=== PATIENT | female | born 1970 | race Caucasian/White ===

== ENCOUNTER 2016-05-19 06:56 | Inpatient (IN) | payer MEDICARE, MEDICAID ==
[~2016-05-19] VITALS: Ht 167.6 cm; Wt 66.0 kg
[~2016-05-19 06:56] MED LIST: CA C1TAB83 PO; CHOL100043 PO; CRAN400T4 PO; CYAN100017 SL; ESOM40CA41 PO; ESTR0.5T PO; OXYB5TAB10 PO; PERP4TAB11 PO; SPIR1TAB2 PO
[2016-05-19] MEDS ORDERED: Magnesium Hydroxide 10 mL Oral Concentration PO PRN (09:30)
[2016-05-19] MEDS ORDERED: Benzocaine-Menthol Lozenge 2/Pkg PO PRN (09:30)
[2016-05-19] MEDS ORDERED: LORazepam 1 mg Tablet PO PRN (09:30)
[2016-05-19] MEDS ORDERED: Alum-Mag Hydrox-Simeth 30 mL Suspension PO PRN (09:30)
[2016-05-19] MEDS ORDERED: VENL75CA95 PO (11:58)
[2016-05-19] MEDS ORDERED: PERP4TAB11 PO (12:07)
--- NOTE | 2016-05-19 12:50 | NUR ---
Nursing Admission Note: Patient arrived on the unit at 0915 on a gurney escorted by EMS and security. Has been increasingly more depressed and hearing command hallucinations to kill herself using a knife to cut herself. States she feels safe here but not if she were at home. Willingly signed no harm contract. States she feels alone at home and needs a medication change so she will not be having these thoughts. Tearfully acknowledged Cerebral Palsy having a lot to do with her depression and SI. Brought patient a FWW to assist her in ambulation on the unit secondary to abnormal gait from Cerebral Palsy. Med rec completed. Ate well at breakfast and lunch. Will monitor mood and behavior. Addendum: 05/19/16 at 1736 by DENNY RIDER RN Patient has rested in her room this AM. Has been out of her room this afternoon watching football games with peers. Some interaction noted. Eating well at meals.
[2016-05-19] MEDS ORDERED: HCTZ PO SCH (13:40)
[2016-05-19] MEDS ORDERED: SPIRONOLACTONE PO SCH (13:40)
[2016-05-19] MEDS: Venlafaxine XR 75 mg ER24 Capsule PO SCH (14:16)
[2016-05-19] MEDS: Pantoprazole 40 mg ER24 Tablet PO SCH (14:16)
--- NOTE | 2016-05-19 16:18 | NUR ---
Bad Credit Collector./ c.m. S.:"I'm somewhere safe..." O.: met with pt. to complete Psychosocial and Treatment plan and goals. Pt. is vol. She had multiple hospitalizations in the past. Her last hospitalization was in 2013. She is connected with [employer] and she also has caregivers from [facility]. She lives alone with a cat. She has supportive mother who is taking care of her cat right now. She started having AH about a year ago. She also started having VH recently that she was afraid of. "They (VH) scared me." Her depression also became worse over the last year. She denied SI today, denied HI. She denied AH/VH today, denied paranoid/delusional thoughts. She rated depression at 8/10 and anxiety at 8/10. She spent most of the time in the Dining room watching TV or watching peers. A.: pt. is cooperative, pleasant, anxious at times. P.: monitor behavior, engage pt. in the unit activities, provide safety; follow care plan.
[2016-05-19 16:21] VITALS: BP 112/71; PULSE 98; RESP 20
--- NOTE | 2016-05-19 19:19 | NUR ---
Observations 0900 to 2130 Pt was polite, pleasant and cooperative. Pt affect was mostly flat. Pt speech and eye contact was ok. Pt was social with staff and peers when approached. Pt watched TV with peers. Pt attended group and unit activities. Pt appears to be internally preoccupied. Pt maintained behavior throughout the shift. Pt attended meals in the D.R. and ate 75% of breakfast, 100% of lunch and 100% of dinner. Pt ate snack. Pt was observed every 15 minutes throughout the shift as ordered.
--- NOTE | 2016-05-19 20:50 | NUR ---
Nurses PRN Patient requested and received Ativan 1mg for anxiety and sleep. She requested Trilafon to be given at HS.
--- NOTE | 2016-05-20 05:36 | NUR ---
nursing, nights, 11-7 s/o- has appeared to sleep after 2200 during q 15 minute assessments. a- no apparent distress. p- monitor behavior/emotional state, quality, times and amount of sleep, use and effect of medication. charles
--- NOTE | 2016-05-20 06:13 | NUR ---
Pt out on unit much of evening. Watched TV and interacted with peers. Asleep at 2200. Pt observed every 15 minutes as ordered.
[2016-05-20] MEDS: Pantoprazole 40 mg ER24 Tablet PO SCH (09:44)
[2016-05-20] MEDS: Venlafaxine XR 75 mg ER24 Capsule PO SCH (09:44)
[2016-05-20 10:10] VITALS: BP 120/82; PULSE 115; RESP 16
[2016-05-20] MEDS ORDERED: Magnesium Hydroxide 10 mL Oral Concentration PO PRN (11:05)
[2016-05-20] MEDS ORDERED: Benzocaine-Menthol Lozenge 2/Pkg PO PRN (11:05)
[2016-05-20] MEDS ORDERED: Alum-Mag Hydrox-Simeth 30 mL Suspension PO PRN (11:05)
--- NOTE | 2016-05-20 14:15 | NUR ---
Golf Course Designer./ c.mNubia S.:"I'm not doing well... Voices came back." O.: met with pt. near TV area. She took a nap after lunch. She slept "good" last night. She denied SI/HI. She denied VH but she was disappointed that AH "came back" today. She was in and out of her room with multiple naps between. She said that usually she would sleep a lot. She described her mood as "so-so". She couldn't rate depression or anxiety at this time because she "just woke up after the nap." A.: pt. is cooperative, quiet, social with peers. P.: monitor behavior, follow care plan.
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
--- NOTE | 2016-05-20 18:09 | NUR ---
Nursing Dayshift: S: "I cried myself to sleep last night." O: Patient has been out of her room much of the shift. Has eaten well at meals. Mother stopped by at 1440 to get keys to patients apartment and stated she would be back with some of patient's belongings. Mother called recently and is still on the phone with patient. Noted to be interacting with staff and peers. Ambulating with a FWW without assistance without problems. C/O auditory hallucinations today and denies visual, and harmful thoughts. A: Pleasant on approach. Calm. P: CPOC. Monitor mood and behavior. Addendum: 05/20/16 at 1820 by DENNY RIDER RN Amended: Links added.
--- NOTE | 2016-05-20 18:33 | NUR ---
Observations 0700 to 1900 Pt was polite, pleasant and cooperative. Pt affect was mostly flat. Pt speech and eye contact was ok. Pt was social with staff and peers when approached. Pt watched TV with peers. Pt attended group and unit activities. Pt appears to be internally preoccupied. Pt maintained behavior throughout the shift. Pt attended meals in the D.R. and ate 50% of breakfast, 75% of lunch and 100% of dinner. Pt ate snack. Pt requires some assistance with ADL's. Pt was observed every 15 minutes throughout the shift as ordered.
--- NOTE | 2016-05-21 00:29 | NUR ---
OBSERVATIONS 1900 TO 0700 Pt was social with peers and cooperative with staff. Pt affect was somewhat bright, joking with staff and peers. Pt attended wrap-up group, stated that she did not have any goals but that she had a good day. Maintained Q15 safety checks as directed. Addendum: 05/21/16 at 0429 by RASHI DUVALL RUST Pt was asleep at 2145 and slept through the night.
--- NOTE | 2016-05-21 00:41 | NUR ---
NURSING NOTE [id number] Orientation= x3 Mood= "ok" *smiles* Affect= calm, pleasant Behavior= sitting out in common area watching TV w/peers, visible, presented independently for HS meds Thought processes= linear, denies SI/HI, endorses "some" AH, denies VH PRNs: Vistaril 50 mg @ HS 21:05 Addendum: 05/21/16 at 0614 by BELINDA SANDHU RN As of 599, pt. appears to have slept 7.5 hrs and is still resting in bed w/eyes closed.
[2016-05-21] MEDS: Venlafaxine XR 75 mg ER24 Capsule PO SCH (09:04)
[2016-05-21] MEDS: Pantoprazole 40 mg ER24 Tablet PO SCH (09:04)
--- NOTE | 2016-05-21 17:10 | NUR ---
Observations [id number] Pt was asleep upon start of shift. Her mood appeared flat and isolative. Pt did attend meals, eating an average of 75%. She also took a shower with the help of a nurse. Pt is friendly with peers upon interaction, but tends to isolate at times instead of getting involved in group activities. Pt stated that she is lonely at home, and that she does have a cat to keep her company but doesn't like living her her place as she feels isolated. Pt did attend groups and worked on art. She was cooperative with staff. Pt was observed every 15 minutes of shift as directed.
--- NOTE | 2016-05-21 17:22 | NUR ---
Syrup Shed Supervisor./ c.m. S.:"I'm tired... feel same as before - didn't notice any change." O.: met with pt. and MD together in pt.'s room. She was in bed sleeping/resting in the middle of the morning. She said that she "slept off and on" last night. She described her mood as "sad and depressed". She asked MD "Can I tried a booster?" They discussed different medication options that she could try to improve her mood. She denied SI/HI, denied AH/VH today. She rated depression at 8/10 and anxiety at 7/10. She was in and out of her room during the day. A.: pt. is cooperative, isolative, quiet, has a flat affect. P.: monitor behavior, encourage pt. to spend more time outside her room; follow care plan.
--- NOTE | 2016-05-21 17:44 | NUR ---
Nursing: Day shift: S: I still feel depressed. It's hard to have family members taking care of family. O: Flower has been lying in bed much of the day. She requested and took a shower with one person assist about 0900. Is able to communicate easily with staff. Is able to ambulate using walker. Has unsteady gait. Pt rated anxiety at 7/10, depression and suicidal thinking at 8/10, PRN meds: Pt received Tylenol 1420. Assessment: After one hour pt is sleeping. Assessment; Effective. A: Pt remains somnolent. Pleasant. No psychotic behaviour noted. Addendum: 05/21/16 at 1808 by LOY BARILLAS RN Amended: Links added.
--- NOTE | 2016-05-21 18:04 | NUR ---
spiritual care: pt request conversational visit in piano room. pt reported on overwhelm from medical/mental health conditions and said loneliness is her biggest concern. She described her living situation including commenting that "it's not healthy that my mother is also my caregiver" Pt reflected on her coping through smiling/laughing and protecting others against the pain and hopelessness she often feels. Pt expressed interest in connecting with a karen community near her home in [place]. She asked for devotional material and was agreeable for me to explore possible connections and follow up. Prayer. Addendum: 05/21/16 at 1810 by BREANNA SAMUELS CM pt insight: she repeated several times: "I like being her better than being "on the outside""--probing this, she offered that it feels more safe, that people care about her and that there are things/process/people that make her feel better.
--- NOTE | 2016-05-21 18:26 | PCM.PNPSY ---
Subjective Date of Service May 21, 2016 Subjective The patient reports that her mood is still low and that she is sad and depressed. She feels that her symptoms have not changed. She requests having a medication which might improve her mood somewhat and reports having responded positively to aripiprazole in the past. We discussed the need for a cross taper from her current medication and the patient was agreeable. She was a aware of the risks and benefits including metabolic syndrome and tardive dyskinesia. On physical examination, the patient had dystonia worse on the left than the right consistent with cerebral palsy with no cogwheeling present. She denied other side effects. She reports having previously received her medications at the [facility] in [place] but they appear to be closed today. Sleep: "Off and on" 7.5 hours Appetite: "Okay" Suicidal and homicidal ideation: None 2 days Auditory hallucinations/Visual hallucinations: None 2 days due to "lower stress " Other Psychotic Symptoms: Denies Anxiety: 7 Depression: 10 Current Medications Current Medications Acetaminophen 650 mg Q4H PRN PO Last administered on 05/21/16at 14:00; Admin Dose 650 MG; Start 05/20/16 at 11:05 Aripiprazole 5 mg DAILY PO Last administered on 05/21/16at 14:33; Admin Dose 5 MG; Start 05/21/16 at 14:05 Perphenazine 8 mg DAILYWM PO Last administered on 05/21/16at 09:05; Admin Dose 8 MG; Start 05/20/16 at 08:00 Prazosin HCl 1 mg HS PO Last administered on 05/20/16at 21:03; Admin Dose 1 MG; Start 05/20/16 at 21:00 Mental Status Exam Appearance: Unkept Attitude: Pleasant, Cooperative Behavior: Stereotypic movements (consistent with cerebral palsy, dystonia, nystagmus) Affect: Restricted Mood: Depressed Thought Process/Associations: Logical/Sequential Speech Production: Paucity Speech Rate: Lags/Latency Speech Articulation: Other (dysarthric) Thought Content: Appropriate Danger to Self/Suicidal Ideati: None Danger to Others: None Hallucinations: Auditory (Denies), Visual (Denies) Consciousness: Alert Orientation: Person, Place, Date, Situation Memory: Grossly Intact Estimate Intellectual Function: Average Attention/Concentration & Cogn: Grossly Intact Insight: Good Judgement: Good Mental Health Plan The patient is a 46-year-old female with cerebral palsy worsening over the past year. She is having difficulty with ambulation and requiring assistance. Her loss of independence is causing an increase in her stress and she is feeling increasingly lonely and isolated. The patient meets criteria for major depression, PTSD, and is having breakthrough pain from cerebral palsy. The patient recently had command auditory hallucinations to harm herself as well as visual hallucinations but these appeared to resolve with decreased stress. The patient had previously been tried on higher doses of Trilafon at this peer to worsened her symptoms. She reports a better response to aripiprazole and although the pharmacy is closed today appears to be a reasonable approach at this time for antidepressant augmentation. She is experiencing no particular acute signs of dystonia or other side effects from neuroleptics. Maria Stein Maria Stein I: 1. Major depressive disorder with psychotic features. 2. Post-traumatic stress disorder. [place] II: Deferred. Maria Stein III: 1. Cerebral palsy. 2. Back pain. Maria Stein IV: Moderate. Maria Stein V: Current Global Assessment of Functioning = 35. Medications Venlafaxine 225 mg daily Perphenazine 8 mg daily Prazosin 1 mg by mouth nightly Hydroxyzine 50 mg every 4 hours when necessary anxiety or agitation Zolpidem 5 mg 2 nightly when necessary insomnia Vitamin D3 1000 units daily Spironolactone 25 mg daily Oxybutynin 5 mg daily Hydrochlorothiazide 25 mg daily Pantoprazole 40 mg daily Estradiol 0.5 mg daily Treatments 1. The patient is provided with a safe environment with no additional precautions necessary at this time as the patient is denying active suicidality and agrees to notify staff this return. 2. The patient is encouraged to participate in group and milieu therapy. 3. The patient will meet with the treatment team on a daily basis. 4. The patient will be continued on the above medications. 5. The patient has requested to cross taper from perphenazine to aripiprazole. 6. Aripiprazole 5 mg by mouth daily will be started today. 7. Anticipated length of stay 3-5 days. Abdi Guillen MD May 21, 2016 18:26
--- NOTE | 2016-05-22 02:30 | NUR ---
Observations 1900 to 0700 Pt was in her room for most of the night. Pt spent most of it in her room besides having a snack. Pt first appeared asleep at 21:30 and was observed every 15 minutes through the night as directed.
--- NOTE | 2016-05-22 05:07 | NUR ---
noc shift Pt appeared to be asleep throughout the night with no distress and q15min checks. Pt was up once requesting juice and went back to sleep shortly after.
[2016-05-22] MEDS: Pantoprazole 40 mg ER24 Tablet PO SCH (09:25)
[2016-05-22] MEDS: Venlafaxine XR 75 mg ER24 Capsule PO SCH (09:26)
[2016-05-22 10:37] VITALS: BP 122/82; PULSE 90; RESP 15
--- NOTE | 2016-05-22 16:29 | PCM.PNPSY ---
Subjective Date of Service May 22, 2016 Subjective The patient reports that she still has a mood of 4/10 and is unchanged from yesterday. She reports no restlessness from the aripiprazole. She denies acute psychotic symptoms. She is getting up for meals and is spending some time in the day area but also is spending much of her time in bed. She denies side effects. She is oriented to 05/22/2016 Sleep: 8 hours, "not good." Appetite: "Okay" Suicidal and homicidal ideation: Denies Auditory hallucinations: Denies Visual hallucinations: Denies Other Psychotic Symptoms: Denies Anxiety/Depression: Both 12/03. Current Medications Current Medications Aripiprazole 5 mg DAILY PO Last administered on 05/22/16at 09:26; Admin Dose 5 MG; Start 05/21/16 at 14:05 Prazosin HCl 1 mg HS PO Last administered on 05/21/16at 20:32; Admin Dose 1 MG; Start 05/20/16 at 21:00 Mental Status Exam Vital Signs Vital Signs Date Time Temp Pulse Resp B/P Pulse Ox O2 Delivery O2 Flow Rate FiO2 05/22/16 10:37 36.3 90 15 122/82 Appearance: Unkept (somewhat) Attitude: Pleasant, Cooperative Behavior: Stereotypic movements (consistent with cerebral palsy, dystonia, nystagmus) Affect: Restricted Mood: Depressed Thought Process/Associations: Logical/Sequential Speech Production: Paucity Speech Rate: Lags/Latency Speech Articulation: Other (dysarthric) Thought Content: Appropriate Danger to Self/Suicidal Ideati: None Danger to Others: None Hallucinations: Auditory (Denies), Visual (Denies) Consciousness: Alert Orientation: Person, Place, Date, Situation Memory: Grossly Intact Estimate Intellectual Function: Average Attention/Concentration & Cogn: Grossly Intact Insight: Good Judgement: Good Mental Health Plan The patient is a 46-year-old female with cerebral palsy worsening over the past year. She is having difficulty with ambulation and requiring assistance. Her loss of independence is causing an increase in her stress and she is feeling increasingly lonely and isolated. The patient meets criteria for major depression, PTSD, and is having breakthrough pain from cerebral palsy. The patient recently had command auditory hallucinations to harm herself as well as visual hallucinations but these appeared to have resolved with decreased stress. The patient had previously been tried on higher doses of Trilafon but this appeared to worsen her symptoms. She reports a better response to aripiprazole in the past but a call to the pharmacy indicates that she has not been prescribed this medication in the past. She is experiencing no particular acute signs of dystonia or other side effects from neuroleptics. [place] I: 1. Major depressive disorder with psychotic features. 2. Post-traumatic stress disorder. [place] II: Deferred. [place] III: 1. Cerebral palsy. 2. Back pain. [place] IV: Moderate. [place] V: Current Global Assessment of Functioning = 35. Medications Venlafaxine 225 mg daily Perphenazine 8 mg daily Aripiprazole 5 mg daily Prazosin 1 mg by mouth nightly Hydroxyzine 50 mg every 4 hours when necessary anxiety or agitation Zolpidem 5 mg 2 nightly when necessary insomnia Vitamin D3 1000 units daily Spironolactone 25 mg daily Oxybutynin 5 mg daily Hydrochlorothiazide 25 mg daily Pantoprazole 40 mg daily Estradiol 0.5 mg daily Treatments 1. The patient is provided with a safe environment with no additional precautions necessary at this time as the patient is denying active suicidality and agrees to notify staff this return. 2. The patient is encouraged to participate in group and milieu therapy. 3. The patient will meet with the treatment team on a daily basis. 4. The patient will be continued on the above medications. 5. The patient has requested to cross taper from perphenazine to aripiprazole. 6. Aripiprazole will be increased to 10 mg daily. Perphenazine will be tapered when stable on aripiprazole. 7. Anticipated length of stay 3-5 days. Abdi Guillen MD May 22, 2016 16:29
--- NOTE | 2016-05-22 17:09 | NUR ---
Observations [id number] Pt was asleep upon start of shift. She attended all meals, eating an average of 75%. Pt's mood appeared pleasant and cooperative. She stayed in bed much of the morning, but did attend art group with other peers later in the afternoon, and also played wii. Pt stated that she enjoys watching others when she can't participate. Pt stated that the shape of her hands makes it difficult to do tasks or crafts. Pt was friendly with others. She was observed every 15 minutes as directed.
--- NOTE | 2016-05-22 18:22 | NUR ---
Nursing; Day Shift: S: Don't make me go home. (said as pt was sitting watching TV with peers looking very happy). I'm still anxious. O: Flower has been out more this shift than yesterday. Initially isolating but since early afternoon to present has interactive with peers: working on puzzle, watching TV, etc. Smiling at gestures of acceptance by peers and staff. No complaints of requests for prn medication today. Takes scheduled meds as offered. Stated depression and suicidality are still high "01/03 or 03/05." A: Pt appears to be enjoying company of peers. P: Continue to assess for effectiveness of meds as Abilify is being increased.
--- NOTE | 2016-05-22 22:27 | NUR ---
Nursing Note [id number] Pt up on unit upon arrival to unit. Pt ate snack and attended group meeting. Pt socializing with staff and peers. Pt maintained good eye contact in conversation and was forthcoming with her feelings. Pt became tearful and stated" Im having thoughts of hurting myself like a /10, Im really lonely and I think it would be better if I wasn't here". When asked if She thought she was able to be safe on the unit Pt stated " I can be safe here but not at home". Offered encouragement and therapeutic talk. Pt received phone call from neighbor and it appeared to cheer her up. Compliant with meds and noted sleep time 2145. Q15 min safety checks per protocol, [facility] sleep, behavior, safety Addendum: 05/23/16 at 0501 by MARIBEL MONTILLA RN Noc shift pt slept through the night after ambien given at 2338, she requested headphones to help her sleep and was effective. Monitored Q15 min checks completed.
--- NOTE | 2016-05-23 01:08 | NUR ---
Observations 1900 to 0700 Pt affect was a little brighter than the previous evening. Pt did have a visitor last night. Pt spent a little more time out in the DR than on the previous night. Pt first appeared asleep at 21:45 and was observed every 15 minutes through the night as directed.
[2016-05-23] MEDS: Pantoprazole 40 mg ER24 Tablet PO SCH (07:39)
[2016-05-23] MEDS: ARIPiprazole 10 mg Tablet PO SCH (08:30)
[2016-05-23] MEDS: Venlafaxine XR 75 mg ER24 Capsule PO SCH (08:30)
--- NOTE | 2016-05-23 16:23 | NUR ---
S: out and room and socializing with peers this shift; showered. Pleased with peer Cipriano braiding her hair B: often stays in her room alone. Speaks of being lonely and needing more friends A: affect brightens when in dayroom interacting with peers and staff R: continue to encourage patient to stay active and engaged on unit
--- NOTE | 2016-05-23 16:41 | PCM.PNPSY ---
Subjective Date of Service May 23, 2016 Subjective The patient reports having negative thoughts and is particularly concerned about loneliness and not having contacts in the community. She reports that [facility]. She reports no restlessness from the aripiprazole. She denies acute psychotic symptoms. She is getting up for meals and is spending some time in the day area but also is spending much of her time in bed. She denies side effects. We discussed either increasing Effexor or prazosin to address her sleep difficulties and trauma related thoughts and the patient elected to increase prazosin. Sleep: 7 hours, "difficult" Appetite: "Okay" Suicidal and homicidal ideation: Denies active, but does endorse passive suicidal ideation without plan or intent and agrees to notify staff. Auditory hallucinations: Denies Visual hallucinations: Denies Other Psychotic Symptoms: Denies Anxiety/Depression: Both 12/03, unchanged from yesterday. Current Medications Current Medications Aripiprazole 10 mg DAILY PO Last administered on 05/23/16at 08:30; Admin Dose 10 MG; Start 05/23/16 at 08:30 Mental Status Exam Appearance: Neat/well groomed Attitude: Pleasant, Cooperative Behavior: Stereotypic movements (consistent with cerebral palsy, dystonia, nystagmus) Affect: Restricted Mood: Depressed Thought Process/Associations: Logical/Sequential Speech Production: Paucity Speech Rate: Lags/Latency Speech Articulation: Other (dysarthric) Thought Content: Appropriate Danger to Self/Suicidal Ideati: None Danger to Others: None Hallucinations: Auditory (Denies), Visual (Denies) Consciousness: Alert Orientation: Person, Place, Date, Situation Memory: Grossly Intact Estimate Intellectual Function: Average Attention/Concentration & Cogn: Grossly Intact Insight: Good Judgement: Good Mental Health Plan The patient is a 46-year-old female with cerebral palsy worsening over the past year. She is having difficulty with ambulation and requires assistance. Her loss of independence is causing an increase in her stress and she is feeling increasingly lonely and isolated. The patient meets criteria for major depression, PTSD, and is having breakthrough pain from cerebral palsy. The patient recently had command auditory hallucinations to harm herself as well as visual hallucinations but these appeared to have resolved with decreased stress. The patient had previously been tried on higher doses of Trilafon but this appeared to worsen her symptoms. She reports a better response to aripiprazole in the past but a call to the pharmacy indicates that she has not been prescribed this medication in the past. She is experiencing no particular acute signs of dystonia or other side effects from neuroleptics. The patient is having difficulty with nighttime intrusive thoughts and so will increase prazosin to 2 mg. We will continue with aripiprazole as augmentation therapy. [place] I: 1. Major depressive disorder with psychotic features. 2. Post-traumatic stress disorder. [place] II: Deferred. [place] III: 1. Cerebral palsy. 2. Back pain. [place] IV: Moderate. [place] V: Current Global Assessment of Functioning = 35. Medications Venlafaxine 225 mg daily Perphenazine 8 mg daily Aripiprazole 5 mg daily Prazosin 1 mg by mouth nightly Hydroxyzine 50 mg every 4 hours when necessary anxiety or agitation Zolpidem 5 mg 2 nightly when necessary insomnia Vitamin D3 1000 units daily Spironolactone 25 mg daily Oxybutynin 5 mg daily Hydrochlorothiazide 25 mg daily Pantoprazole 40 mg daily Estradiol 0.5 mg daily Treatments 1. The patient is provided with a safe environment with no additional precautions necessary at this time as the patient is reporting passive suicidal ideation without plan or intent and is denying active suicidality and agrees to notify staff if this returns. 2. The patient is encouraged to participate in group and milieu therapy. 3. The patient will meet with the treatment team on a daily basis. 4. The patient will be continued on the above medications. 5. The patient has requested to cross taper from perphenazine to aripiprazole. 6. Prazosin will be increased to 2 mg at bedtime. 7. Anticipated length of stay 3-5 days. Abdi Guillen MD May 23, 2016 16:41
--- NOTE | 2016-05-23 17:15 | NUR ---
Nurses PRN Patient c/o anxiety and received Hydroxyzine 50mg,will assess response.
[2016-05-23 17:36] VITALS: BP 107/70; PULSE 98; RESP 16
--- NOTE | 2016-05-23 17:38 | NUR ---
[facility] Day Shift Pt maintained behavioral control throughout the shift. Pt affect appears mostly flat, bright when engaged. Pt appears to spend most of the shift resting quietly/listening to music in her room or sitting quietly/watching TV in the dining room. Pt is pleasant with staff and peers when engaged, but is not overly social. Pt did not attend community meeting in the AM or group activities throughout the shift. Pt attended all meals and ate approx 100% of all meals.
--- NOTE | 2016-05-23 19:31 | NUR ---
spiritual care: follow pt concern about conversational visit. pt described her day and continued anxiety and depression. she said she did not feel any difference despite medications and did not talk to staff about it because she did not want to disappoint anyone. Pt also spoke of coping with hearing voices that challenge her worthiness that lead her to want to end her life. Pt grew tearful as she described this. Pt eagerly heard my report about conversation with emi contreras (Varsha Mercer) who is agreeable to meet with pt if she is inpt over weekend. [employer] is accessible and pt expressed some interest in taking part in activities there. I will relay pt's wishes for a visit if possible. pt narrated list of things for which she is grateful and this became a closing prayer for our time. Addendum: 05/23/16 at 1938 by BREANNA SAMUELS CM heading should read: pt concern about medication effects
--- NOTE | 2016-05-23 23:43 | NUR ---
Nursing Note [id number] Pt up in milieu upon arrival to unit. Pt maintains good eye contact and appears to brighten up when engaging in conversation. pt rated depression 10 and anxiety 8/. Pt stated she was still having SI thoughts and stated "the thoughts are evil". Pt was up for karina snack and group, compliant with meds. Pt maintained controlled, cooperative behavior. Q5 min safety checks per protocol, no distress noted Pt found asleep 2145. [facility] sleep, behavior, safety Addendum: 05/24/16 at 0444 by ROM HORNER RN Sleep- Pt has had 7 hr uninterrupted sleep, no distress noted
--- NOTE | 2016-05-24 05:42 | NUR ---
Pt out on unit watching TV and interacting. Listened to music. Asleep at 2145. Pt observed every 15 minutes as ordered.
[2016-05-24] MEDS: Pantoprazole 40 mg ER24 Tablet PO SCH (07:58)
[2016-05-24] MEDS: ARIPiprazole 10 mg Tablet PO SCH (09:01)
[2016-05-24] MEDS: Venlafaxine XR 75 mg ER24 Capsule PO SCH (09:02)
--- NOTE | 2016-05-24 11:13 | NUR ---
spiritual care: pt request for community clergy connection contacted luggage maker Varsha Mercer who is agreeable to visit pt friday 05/25 at 9:30 am to explore possible connection with [facility]. please contact her directly if pt is discharged or unavailable for visit. [id number]
[2016-05-24 11:38] VITALS: BP 123/80; PULSE 108; RESP 16
--- NOTE | 2016-05-24 17:32 | NUR ---
Observation [id number] Pt was asleep upon start of shift. She attended breakfast later in the day, as she stated she was very tired in the morning. Pt's mood appeared to be very anxious regarding discharge. She questioned this typewriter assembler regarding average length of stay, and who had stayed here the longest. Pt stated "I need coping skills. I am scared shitless to go home.....I don't want this cycle to continue." Pt worked on coping skills by making a list of things to do when she is feeling down. A test fixture assembler from a local [employer] is also scheduled to come and see her tomorrow. Pt appears to be enjoying time with peers. She took a shower and attended and ate all meals. Pt was observed every 15 minutes of shift as directed.
--- NOTE | 2016-05-24 18:34 | NUR ---
Nursing Dayshift: S: "My case filler Jason stopped by today. He wanted to know when I would be discharged." O: Patient states she likes the new case filler. Is also happy to have a spiritual counselor stopping by tomorrow AM to discuss opportunities in [place] for her after discharge. Very pleasant on approach. Out in dining room for meals with a good appetite. Watching football on TV with peers at present. Has attended unit activities. Ambulating using a FWW with a slow leaning gait. Has c/o left foot pain today and received ibuprofen 600 mg mid afternoon without any relief per patient. Received Tylenol 650 mg at 1627 without effective relief. at present has foot elevated with ice. Anxiety "better." Depression 12/03. Denies harmful thoughts and hallucinations. A: Pleasant. Brightens with interaction. P: CPOC. Monitor mood and behavior.
--- NOTE | 2016-05-24 18:36 | PCM.PNPSY ---
Subjective Date of Service May 24, 2016 Subjective The patient reported having "evil voices" last night and reported that they continued today stating that she is a "bad person" and "telling me to hurt myself." She denies any actual suicidal ideation and has no plan or intent to act on. She also agrees to notify staff should she have thoughts of harming herself. She denies side effects. The patient reports that she was tossing and turning and did not feel that the increase in prazosin was effective. Sleep: 7.5 hours per staff, "tossing and turning" Appetite: "Okay" Suicidal and homicidal ideation: Denies but reports auditory hallucinations as above, denies plan or intent and agrees to notify staff.. Auditory hallucinations: As noted above Visual hallucinations: Denies Other Psychotic Symptoms: Denies Anxiety: 12/03 Depression: 01/03. Current Medications Current Medications Aripiprazole 5 mg ONCE ONCE PO Last administered on 05/24/16at 10:36; Admin Dose 5 MG; Start 05/24/16 at 10:25; Stop 05/24/16 at 10:27; Status DC Aripiprazole 10 mg DAILY PO Last administered on 05/24/16at 09:01; Admin Dose 10 MG; Start 05/23/16 at 08:30; Stop 05/24/16 at 10:26; Status DC Prazosin HCl 2 mg HS PO Last administered on 05/23/16at 20:41; Admin Dose 2 MG; Start 05/23/16 at 21:00 Mental Status Exam Vital Signs Vital Signs Date Time Temp Pulse Resp B/P Pulse Ox O2 Delivery O2 Flow Rate FiO2 05/24/16 11:38 36.4 108 16 123/80 Appearance: Neat/well groomed Attitude: Pleasant, Cooperative Behavior: Stereotypic movements (consistent with cerebral palsy, dystonia, nystagmus) Affect: Restricted Mood: Depressed Thought Process/Associations: Logical/Sequential Speech Production: Paucity Speech Rate: Lags/Latency Speech Articulation: Other (dysarthric) Thought Content: Negativistic Danger to Self/Suicidal Ideati: None Danger to Others: None Hallucinations: Auditory (endorses, as above), Visual (Denies) Consciousness: Alert Orientation: Person, Place, Date, Situation Memory: Grossly Intact Estimate Intellectual Function: Average Attention/Concentration & Cogn: Grossly Intact Insight: Good Judgement: Good Mental Health Plan The patient is a 46-year-old female with cerebral palsy worsening over the past year. She is having difficulty with ambulation and requires assistance. Her loss of independence is causing an increase in her stress and she is feeling increasingly lonely and isolated. The patient meets criteria for major depression, PTSD, and is having breakthrough pain from cerebral palsy. The patient recently had command auditory hallucinations to harm herself as well as visual hallucinations but these appeared to have resolved with decreased stress. The patient had previously been tried on higher doses of Trilafon but this appeared to worsen her symptoms. She reports a better response to aripiprazole in the past but a call to the pharmacy indicates that she has not been prescribed this medication in the past. She is experiencing no particular acute signs of dystonia or other side effects from neuroleptics. The patient is agreeable to increasing aripiprazole to 15 mg. We discussed increasing Effexor, however the ER version is not available at present time. Should the patient still had difficulty sleeping, increasing prazosin tomorrow may be indicated. The patient's outpatient registered nurse hh case manager is hoping for placement in a long-term or other similar facility. This appears to be consistent with the patient's desire to be with others. [place] I: 1. Major depressive disorder with psychotic features. 2. Post-traumatic stress disorder. [place] II: Deferred. [place] III: 1. Cerebral palsy. 2. Back pain. [place] IV: Moderate. [place] V: Current Global Assessment of Functioning = 35. Medications Venlafaxine 225 mg daily Perphenazine 8 mg daily Aripiprazole 10 mg daily Prazosin 2 mg by mouth nightly Hydroxyzine 50 mg every 4 hours when necessary anxiety or agitation Zolpidem 5 mg 2 nightly when necessary insomnia Vitamin D3 1000 units daily Spironolactone 25 mg daily Oxybutynin 5 mg daily Hydrochlorothiazide 25 mg daily Pantoprazole 40 mg daily Estradiol 0.5 mg daily Treatments 1. The patient is provided with a safe environment with no additional precautions necessary at this time as the patient is reporting no active suicidal ideation and despite auditory hallucinations, has no plan, intent or desire to follow them. 2. The patient is encouraged to participate in group and milieu therapy. 3. The patient will meet with the treatment team on a daily basis. 4. The patient will be continued on the above medications. 5. The patient has requested to cross taper from perphenazine to aripiprazole. 6. Increase aripiprazole to 15 mg daily and consider increasing prazosin to 4 mg nightly. 7. Anticipated length of stay 3-5 days. Abdi Guillen MD May 24, 2016 18:36
--- NOTE | 2016-05-25 05:02 | NUR ---
Nursing Noc Pt out to DR for TV and snacks at beginning of shift. Ambulating safely with FWW. Taking all medications as ordered. Zero report of audio or visual hallucinations this shift. Possible discharge Saturday. Pt noted by Q15 minute safety checks to be asleep at 2115 and remained asleep throughout the night. Continuing to monitor mood, behavior, emotional state. BHCP
--- NOTE | 2016-05-25 05:48 | NUR ---
Pt out on unit in evening watching TV and interacting. Mother was here for a short visit. Asleep at 2115. Pt observed every 15 minutes as ordered.
[2016-05-25] MEDS: Pantoprazole 40 mg ER24 Tablet PO SCH (10:03)
[2016-05-25] MEDS: Venlafaxine XR 75 mg ER24 Capsule PO SCH (10:03)
--- NOTE | 2016-05-25 17:44 | NUR ---
Nursing Day Shift S: "I was told I'll be going home some time next week." O: Patient has been out of her room much of the shift. Up for a late breakfast and meeting with a town administrator from a [facility] in [place] where patient is going to check out when she discharges next week. Showered after lunch with female staff assistance. Smiles during interaction. Received Vistaril 50 mg for increased anxiety at 1531 with patient stating effective relief. Anxiety afterward "better". Depression "a seven. It's going down a little bit every day." Happily denies harmful thoughts and hallucinations. A: Pleasant and cooperative. Good appetite. Improving. bright affect. P: CPOC. Monitor mood and behavior. Addendum: 05/25/16 at 1754 by DENNY RIDER RN Amended: Links added.
[2016-05-25 18:02] VITALS: BP 91/64; PULSE 102; RESP 14
--- NOTE | 2016-05-25 18:36 | NUR ---
[facility] Day Shift Pt affect and behavior mostly unchanged throughout most of the shift. Pt maintained behavioral control throughout the shift. Pt affect appears mostly flat, bright when engaged. Pt appears to spend most of the shift resting quietly/listening to music in her room or sitting quietly/watching TV in the dining room. Pt is pleasant with staff and peers when engaged, but is not overly social. Pt attended community meeting in the AM. Pt lightly attended group activities throughout the shift. Pt attended all meals and ate approx 100% of all meals.
[2016-05-25] MEDS ORDERED: Venlafaxine XR 75 mg ER24 Capsule PO ONE (18:50)
--- NOTE | 2016-05-25 20:41 | PCM.PNPSY ---
Subjective Date of Service May 25, 2016 Subjective The patient reported some dizziness this morning. We discussed the lack of availability of the extended release formulation of Effexor and discussed with pharmacy splitting the dose until the extended release available and the patient was agreeable. She reported she would prefer to increase her antidepressant. We discussed decreasing the Trilafon as she is now on Abilify and experiencing some hypotension. The patient was agreeable. She reported taking a shower which helped her mood and anxiety. She is denying side effects. The patient feels that her outpatient family service caseworker is supportive and would like to speak with him. She also indicated that she would still like a roommate if that were possible in the future. Sleep: 0.75 hours. Appetite: "Good" Suicidal and homicidal ideation: Denies Auditory hallucinations: "Okay" Visual hallucinations:"Okay" Other Psychotic Symptoms: Denies Anxiety: 10/03 Depression: 12/03 Current Medications Current Medications Aripiprazole 5 mg ONCE ONCE PO Last administered on 05/24/16at 10:36; Admin Dose 5 MG; Start 05/24/16 at 10:25; Stop 05/24/16 at 10:27; Status DC Aripiprazole 15 mg DAILY PO Last administered on 05/25/16at 10:07; Admin Dose 15 MG; Start 05/25/16 at 08:30 Prazosin HCl 2 mg HS PO Last administered on 05/24/16at 20:54; Admin Dose 2 MG; Start 05/23/16 at 21:00 Venlafaxine HCl 75 mg ONCE ONCE PO Last administered on 05/25/16at 19:59; Admin Dose 75 MG; Start 05/25/16 at 18:50; Stop 05/25/16 at 19:00; Status DC Mental Status Exam Vital Signs Vital Signs Date Time Temp Pulse Resp B/P Pulse Ox O2 Delivery O2 Flow Rate FiO2 05/25/16 18:02 36.4 102 14 91/64 Appearance: Neat/well groomed Attitude: Pleasant, Cooperative Behavior: Stereotypic movements (consistent with cerebral palsy, dystonia, nystagmus) Affect: Restricted Mood: Depressed Thought Process/Associations: Logical/Sequential Speech Production: Paucity Speech Rate: Lags/Latency Speech Articulation: Other (dysarthric) Thought Content: Negativistic Danger to Self/Suicidal Ideati: None Danger to Others: None Hallucinations: Auditory (Denies), Visual (Denies) Consciousness: Alert Orientation: Person, Place, Date, Situation Memory: Grossly Intact Estimate Intellectual Function: Average Attention/Concentration & Cogn: Grossly Intact Insight: Good Judgement: Good Mental Health Plan The patient is a 46-year-old female with cerebral palsy worsening over the past year. She is having difficulty with ambulation and requires assistance. Her loss of independence is causing an increase in her stress and she is feeling increasingly lonely and isolated. The patient meets criteria for major depression, PTSD, and is having breakthrough pain from cerebral palsy. The patient recently had command auditory hallucinations to harm herself as well as visual hallucinations but these appeared to have resolved with decreased stress. The patient had previously been tried on higher doses of Trilafon but this appeared to worsen her symptoms. She reports a better response to aripiprazole in the past but a call to the pharmacy indicates that she has not been prescribed this medication in the past. She is experiencing no particular acute signs of dystonia or other side effects from neuroleptics. We discussed increasing the Effexor XR to 150 mg twice a day and the patient was agreeable. Given low blood pressure, increasing presence and further is likely not possible until her blood pressure normalizes. We will need to decrease Trilafon as part of the cross taper to Abilify which may improve her blood pressure. The patient's outpatient family service caseworker is hoping for placement in a nursing home or other similar facility. This appears to be consistent with the patient's desire to be with others. [place] I: 1. Major depressive disorder with psychotic features. 2. Post-traumatic stress disorder. [place] II: Deferred. [place] III: 1. Cerebral palsy. 2. Back pain. [place] IV: Moderate. [place] V: Current Global Assessment of Functioning = 35. Medications Venlafaxine 225 mg daily Perphenazine 8 mg daily Aripiprazole 15 mg daily Prazosin 2 mg by mouth nightly Hydroxyzine 50 mg every 4 hours when necessary anxiety or agitation Zolpidem 5 mg 2 nightly when necessary insomnia Vitamin D3 1000 units daily Spironolactone 25 mg daily Oxybutynin 5 mg daily Hydrochlorothiazide 25 mg daily Pantoprazole 40 mg daily Estradiol 0.5 mg daily Treatments 1. The patient is provided with a safe environment with no additional precautions necessary at this time as the patient is reporting no active suicidal ideation and despite auditory hallucinations, has no plan, intent or desire to follow them. 2. The patient is encouraged to participate in group and milieu therapy. 3. The patient will meet with the treatment team on a daily basis. 4. The patient will be continued on the above medications. 5. Decrease perphenazine to 4 mg daily. 6. Increase Effexor XR to 150 mg twice a day starting tomorrow with additional 75 mg this evening. 7. Anticipated length of stay 3-5 days. Abdi Guillen MD May 25, 2016 20:41
--- NOTE | 2016-05-25 21:04 | NUR ---
Case Management/Counselor: S: "My anxiety is decreasing everyday." O: Patient denies S/I and H/I. She reports auditory and visual hallucinations are "okay." Depression is 7/10 and anxiety is 5/10. A: Patient is cooperative, restricted affect, depressed, good insight. P: Follow care plan, coordinate out-patient providers.
--- NOTE | 2016-05-26 05:19 | NUR ---
Nursing Noc Pt reportedly had good day, noted to have visitors today. Noted on Q15 minute safety checks to be asleep at 2200 and slept throughout the shift. Continuing to monitor mood, behavior, emotional state and medication effectiveness. CP.
--- NOTE | 2016-05-26 05:43 | NUR ---
Pt out on unit in evening watching TV and interacting. Asleep at 2200. Pt observed every 15 minutes as ordered.
--- NOTE | 2016-05-26 05:59 | NUR ---
Nursing Note Noc Pt asleep upon arrival to unit. Sleep time noted 2200 with 8 hr uninterrupted sleep. Q15 min safety checks done per protocol, no distress noted, No PRN's given on shift WCTM sleep, behavior, safety
[2016-05-26] MEDS: Pantoprazole 40 mg ER24 Tablet PO SCH (09:20)
[2016-05-26] MEDS: Venlafaxine XR 75 mg ER24 Capsule PO SCH ×2 (09:20→17:46)
--- NOTE | 2016-05-26 11:55 | NUR ---
Spironolactone and Hydrochlorothiazide held until MD could be consulted due to BP of 110/71.
[2016-05-26 12:34] VITALS: BP 110/71; PULSE 100; RESP 16
--- NOTE | 2016-05-26 18:02 | NUR ---
[id number]. nurs. S: " I'm scared about going home I am scared about being alone I am getting better all the time but I wish I could have 5 hrs of caregivers every day....I am scared of losing my independence if I go into a [facility]... I need more of a boost I would like to go up to 20 mg of abilify and stop What do I do if I get anxious..." O:Pt stating that she has no SI and that her depression and anxiety has improved, reduced to 5/10. Pt aware of assessment that is occurring on on re. housing possibilities and states that her outpt CM is coming to her home on Saturday to evaluate her situation re. gaing more hours of caregiving. Pt comfortable on unit and hoping to stay longer because of increased sociability and increased availability of care. Pt with bright affect and communicative and expressing concerns re. coping at home. P:CNCP
--- NOTE | 2016-05-26 19:40 | PCM.PNPSY ---
Subjective Date of Service May 26, 2016 Subjective The patient reported that she is doing better today and would like to go outside on the patio. We discussed using a wheelchair to go up the ramp and to avoid problems with the decking. The patient was agreeable with this plan and enjoyed the outdoors excursion. We discussed discontinuing Trilafon entirely on Saturday and the patient was agreeable. No side effects at this time. Sleep: 7+ hours, "so so, not rested." Appetite: "Okay" Suicidal and homicidal ideation: Denies Auditory hallucinations/Visual hallucinations: Denies Anxiety: 09/03 Depression: 10/03 Current Medications Current Medications Aripiprazole 15 mg DAILY PO Last administered on 05/26/16at 09:20; Admin Dose 15 MG; Start 05/25/16 at 08:30 Perphenazine 4 mg DAILYWM PO Last administered on 05/26/16at 09:20; Admin Dose 4 MG; Start 05/26/16 at 08:00 Venlafaxine HCl 75 mg ONCE ONCE PO Last administered on 05/25/16at 19:59; Admin Dose 75 MG; Start 05/25/16 at 18:50; Stop 05/25/16 at 19:00; Status DC Venlafaxine HCl 150 mg BIDWM PO Last administered on 05/26/16at 17:46; Admin Dose 150 MG; Start 05/26/16 at 08:00 Mental Status Exam Vital Signs Vital Signs Date Time Temp Pulse Resp B/P Pulse Ox O2 Delivery O2 Flow Rate FiO2 05/26/16 12:34 36.4 100 16 110/71 Appearance: Neat/well groomed Attitude: Pleasant, Cooperative Behavior: Stereotypic movements (consistent with cerebral palsy, dystonia, nystagmus) Affect: Restricted Mood: Dysthymic Thought Process/Associations: Logical/Sequential Speech Production: Paucity Speech Rate: Lags/Latency Speech Articulation: Other (dysarthric) Thought Content: Negativistic Danger to Self/Suicidal Ideati: None Danger to Others: None Hallucinations: Auditory (Denies), Visual (Denies) Consciousness: Alert Orientation: Person, Place, Date, Situation Memory: Grossly Intact Estimate Intellectual Function: Average Attention/Concentration & Cogn: Grossly Intact Insight: Good Judgement: Good Mental Health Plan The patient is a 46-year-old female with cerebral palsy worsening over the past year. She is having difficulty with ambulation and requires assistance. Her loss of independence is causing an increase in her stress and she is feeling increasingly lonely and isolated. The patient meets criteria for major depression, PTSD, and is having breakthrough pain from cerebral palsy. The patient recently had command auditory hallucinations to harm herself as well as visual hallucinations but these appeared to have resolved with decreased stress. The patient had previously been tried on higher doses of Trilafon but this appeared to worsen her symptoms. She reports a better response to aripiprazole in the past but a call to the pharmacy indicates that she has not been prescribed this medication in the past. She is experiencing no particular acute signs of dystonia or other side effects from neuroleptics. The patient is noting no side effects from the increase in Effexor XR. Given low blood pressure, increasing prazosin any further is likely not possible until her blood pressure normalizes. We will need to decrease Trilafon as part of the cross taper to Abilify which may improve her blood pressure; Trilafon will be discontinued on Saturday.. The patient's outpatient dependency case manager is hoping for placement in a [facility] or other similar facility; this appears to be consistent with the patient's desire to be with others although the patient is concerned about "losing too much already" regarding independence. As the patient is already on prazosin, we will reduce hydrochlorothiazide to 12.5 mg to help normalize blood pressure. [place] I: 1. Major depressive disorder with psychotic features. 2. Post-traumatic stress disorder. [place] II: Deferred. [place] III: 1. Cerebral palsy. 2. Back pain. [place] IV: Moderate. [place] V: Current Global Assessment of Functioning = 35. Medications Venlafaxine XR 150 mg twice daily Perphenazine 4 mg daily Aripiprazole 15 mg daily Prazosin 2 mg by mouth nightly Hydroxyzine 50 mg every 4 hours when necessary anxiety or agitation Zolpidem 5 mg 2 nightly when necessary insomnia Vitamin D3 1000 units daily Spironolactone 25 mg daily Oxybutynin 5 mg daily Hydrochlorothiazide 12.5 mg daily Pantoprazole 40 mg daily Estradiol 0.5 mg daily Treatments 1. The patient is provided with a safe environment with no additional precautions necessary at this time as the patient is reporting no active suicidal ideation. 2. The patient is encouraged to participate in group and milieu therapy. 3. The patient will meet with the treatment team on a daily basis. 4. The patient will be continued on the above medications. 5. Discontinue perphenazine on 05/28/2016 6. Decrease hydrochlorothiazide to 12.5 mg daily 7. Anticipated length of stay 3-5 days. Abdi Guillen MD May 26, 2016 19:39
--- NOTE | 2016-05-26 21:43 | NUR ---
OBSERVATIONS TO 2129 Pt spent much of the day on watching TV and in the dining room socializing with peers. Pt enjoyed going outside on the patio. Pt made a number of phone calls. Maintained Q15 safety checks as directed.
--- NOTE | 2016-05-27 04:56 | NUR ---
Nursing Noc. Pt appeared to fall asleep at 2145 and remained asleep throughout the shift until 0500. Pt maintaining safety and performing ADLs independently, interacting with staff and patients appropriately. Continuing to monitor safety with Q15 minute safety checks, mood behavior, emotional state and medication effectiveness. CP
[2016-05-27] MEDS: Pantoprazole 40 mg ER24 Tablet PO SCH (09:12)
[2016-05-27] MEDS: Venlafaxine XR 75 mg ER24 Capsule PO SCH ×2 (09:13→17:45)
[2016-05-27] MEDS: HYDROcodone-APAP 10-325 mg PO PRN (12:44)
[2016-05-27 15:41] VITALS: BP 110/61; PULSE 68; RESP 16
--- NOTE | 2016-05-27 16:12 | NUR ---
[id number]. nurs. S: "Really feel a lot better after shower, I am trying not to worry about when I go home, but I do want to go home but not to soon" O: Pt out on unit appreciating the social interaction and care giving by some peers and assisted with showering in afternoon. A: Pt stating that her depression and anxiety reduced from 5/10 of yesterday to 3/10 today "because I am in a safe place, I don't want to go home to soon. Pt states has no SI. Anticipating visit from friend Nuria today. Pt with bright smiling affect enjoys the company on unit, fearful of being home alone with out presence of caregivers in eves. Pt wants 5 hours of care givers daily preferably divided into mornings and karina. P:MIESHA
--- NOTE | 2016-05-27 17:30 | NUR ---
Metal Filer./ c.m. S.:"I had trouble sleeping... my mood is better today." O.: met with pt. and MD together in pt.'s room. She was in bed in the middle of the morning. She complained about poor sleep but than she admitted sleeping at least 7 hrs last night. She denied SI/HI, denied AH/VH, denied paranoid/delusional thoughts. She rated depression at 4/10 and anxiety at 3/10. She admitted feeling better today. She is aware of her meds change tomorrow. She was in and out of her room later in the day. She was able to take a shower with staff help. A.: pt. is cooperative, quiet, very passive, has better affect. P.: monitor behavior, encourage pt. to stay away from her room, work on follow up and Safety plan; follow care plan.
--- NOTE | 2016-05-27 18:27 | NUR ---
[facility] Day Shift Pt affect and behavior mostly unchanged throughout most of the shift. Pt maintained behavioral control throughout the shift. Pt affect appears mostly flat, bright when engaged. Pt appears to spend most of the shift resting quietly/listening to music in her room or sitting quietly/watching TV in the dining room. Pt is pleasant with staff and peers when engaged, but is not overly social. Pt did not attend community meeting in the AM or group activities throughout the shift. Pt attended all meals and ate approx 30% of all breakfast and 80% of lunch and dinner.
--- NOTE | 2016-05-27 18:57 | PCM.PNPSY ---
Subjective Date of Service May 27, 2016 Subjective The patient reported that she is doing better today and that her mood is "okay" . We discussed discontinuing Trilafon entirely on Saturday and the patient was agreeable. No side effects at this time. Sleep: 8 + hours, "not very good, I only slept until 4:30 AM." On further assessment patient's slept from 9:30 PM to 4:30 AM for approximately 7 hours by her own report. Appetite: "All right" Suicidal ideation: "Comes and goes" none currently. Homicidal ideation: Denies Auditory hallucinations/Visual hallucinations: Denies Anxiety: 08/03 today, yesterday 09/03 Depression: 09/03 today, yesterday 10/03 Current Medications Current Medications Hydrochlorothiazide 12.5 mg DAILY PO Last administered on 05/27/16 09:13; Admin Dose 12.5 MG; Start 05/27/16 at 08:30 Perphenazine 4 mg DAILYWM PO Last administered on 05/27/16 09:11; Admin Dose 4 MG; Start 05/26/16 at 08:00 Venlafaxine HCl 150 mg BIDWM PO Last administered on 05/27/16 17:45; Admin Dose 150 MG; Start 05/26/16 at 08:00 Mental Status Exam Vital Signs Vital Signs Date Time Temp Pulse Resp B/P Pulse Ox O2 Delivery O2 Flow Rate FiO2 05/27/16 15:41 36.2 68 16 110/61 Appearance: Neat/well groomed Attitude: Pleasant, Cooperative Behavior: Stereotypic movements (consistent with cerebral palsy, dystonia, nystagmus) Affect: Restricted Mood: Dysthymic Thought Process/Associations: Logical/Sequential Speech Production: Paucity Speech Rate: Lags/Latency Speech Articulation: Other (dysarthric) Thought Content: Negativistic Danger to Self/Suicidal Ideati: None Danger to Others: None Hallucinations: Auditory (Denies), Visual (Denies) Consciousness: Alert Orientation: Person, Place, Date, Situation Memory: Grossly Intact Estimate Intellectual Function: Average Attention/Concentration & Cogn: Grossly Intact Insight: Good Judgement: Good Mental Health Plan The patient is a 46-year-old female with cerebral palsy worsening over the past year. She is having difficulty with ambulation and requires assistance. Her loss of independence is causing an increase in her stress and she is feeling increasingly lonely and isolated. The patient meets criteria for major depression, PTSD, and is having breakthrough pain from cerebral palsy. The patient recently had command auditory hallucinations to harm herself as well as visual hallucinations but these appeared to have resolved with decreased stress. The patient had previously been tried on higher doses of Trilafon but this appeared to worsen her symptoms. She reports a better response to aripiprazole in the past but a call to the pharmacy indicates that she has not been prescribed this medication in the past. She is experiencing no particular acute signs of dystonia or other side effects from neuroleptics. The patient is noting no side effects from the increase in Effexor XR. Given low blood pressure, increasing prazosin any further is likely not possible until her blood pressure normalizes. We will need to decrease Trilafon as part of the cross taper to Abilify which may improve her blood pressure; Trilafon will be discontinued on Saturday.. The patient's outpatient director case is hoping for placement in a custodial or other similar facility; this appears to be consistent with the patient's desire to be with others although the patient is concerned about "losing too much already" regarding independence. As the patient is already on prazosin, we will reduce hydrochlorothiazide to 12.5 mg to help normalize blood pressure. The patient is receiving spironolactone and hydrochlorothiazide for treatment of her acne. [place] I: 1. Major depressive disorder with psychotic features. 2. Post-traumatic stress disorder. [place] II: Deferred. [place] III: 1. Cerebral palsy. 2. Back pain. [place] IV: Moderate. [place] V: Current Global Assessment of Functioning = 35. Medications Venlafaxine XR 150 mg twice daily Aripiprazole 15 mg daily Prazosin 2 mg by mouth nightly Hydroxyzine 50 mg every 4 hours when necessary anxiety or agitation Zolpidem 5 mg 1-2 nightly when necessary insomnia Vitamin D3 1000 units daily Spironolactone 25 mg daily Oxybutynin 5 mg daily Hydrochlorothiazide 12.5 mg daily Pantoprazole 40 mg daily Estradiol 0.5 mg daily Treatments 1. The patient is provided with a safe environment with no additional precautions necessary at this time as the patient is reporting no active suicidal ideation. 2. The patient is encouraged to participate in group and milieu therapy. 3. The patient will meet with the treatment team on a daily basis. 4. The patient will be continued on the above medications. 5. Discontinue perphenazine on 05/28/2016 6. When patient discharge, will need to be converted to Effexor ER 300 mg daily. 7. Anticipated length of stay 3-5 days. Abdi Guillen MD May 27, 2016 18:57
--- NOTE | 2016-05-28 01:10 | NUR ---
OBSERVATIONS 1900 TO 0700 Pt was pleasant, appropriate, and cooperative with staff. Pt rarely initiates socialization, however, appears bright and amiable when engaged. Pt attended group wrap-up in the evening, rated her mood 5/10. Pt stated that she accomplished today's goals of showering and watching a movie. Pt noted asleep at 23:15. Q15 checks for safety were maintained as directed.
--- NOTE | 2016-05-28 05:27 | NUR ---
Nursing Noc Pt pleasant on approach and following conversation appropriately. Denies suicidal ideation, initiates conversation with staff to convey needs or concerns. Noted to first fall asleep at 2315 by Q15 minute safety checks. Continuing to monitor mood, behavior, emotional state and medications effectiveness. BHCP.
[2016-05-28] MEDS: Venlafaxine XR 75 mg ER24 Capsule PO SCH ×2 (09:06→17:32)
[2016-05-28] MEDS: Pantoprazole 40 mg ER24 Tablet PO SCH (09:07)
--- NOTE | 2016-05-28 11:23 | NUR ---
Nursing Note [id number] Behavior S/O: Pt in room most of the morning. Out for breakfast. Took am medications in applesauce. Incontinent of urine this morning while sitting on edge of bed. Needed assist with changing underwear & pants. Ambulates with walker with unsteady gait. Bedding changed in room. Pt is pleasant & cooperative with sourcing assistant with cares. Minimal interaction with peers. A: Pt unable to do own ADL's. Pt isolative to room. P: Provide supportive environment. Monitor medications & effects.
[2016-05-28] MEDS: HYDROcodone-APAP 10-325 mg PO PRN (12:24)
--- NOTE | 2016-05-28 13:16 | NUR ---
Digital Media Specialist./ c.m. S.:"I think I need to raise up Abilify dose." O.: met with pt. in her room. She was in bed resting. She complained about pain in her body - "I hurt a lot." She denied SI/HI, denied AH/VH, denied paranoid/delusional thoughts. She rated depression at 4/10 and anxiety at 7/10 because she was thinking about her discharge home. She didn't sleep well last night because she was worried about her discharge. We discussed her discharge plan as well as coping skills for her anxiety related to discharge. Pt. spent most of the time in her room in bed. A.: pt. is cooperative, isolative, quiet, has a lot of discharge anxiety. P.: monitor behavior, encourage pt. to stay more in the public area; follow care plan.
--- NOTE | 2016-05-28 17:54 | NUR ---
Observations [id number] Pt was asleep upon start of shift. She attended breakfast late, eating 75% of her meal. Pt requested assistance with a shower, which this database report writer helped her with. She stated that she should be able to go home on Saturday, but she is scared. Pt agreed that regardless of when she goes home she will be nervous about the outcome, stating that "it's hard being lonely." Pt also stated that she's had a few thoughts of suicide today, and asking "will you let the doctor know?". Pt agreed that she could contract for safety and ask staff for help. Pt spent the remainder of the evening in the DR around peers. Pt ate lunch and dinner. She was observed every 15 minutes of shift as directed.
--- NOTE | 2016-05-28 18:48 | NUR ---
Nursing [id number] Pt tearful in room stating "I don't feel ready to leave Saturday." She explained she doesn't feel like she has a good support system. She states she feels better than when she was admitted, but still feels very depressed. Pt verbally agrees to stay safe and not harm herself while here.
--- NOTE | 2016-05-28 20:22 | PROG NOTE ---
[address] [address] PROGRESS NOTE PATIENT: SKYE SANTOS : 1970 MR#: [id number] ADMIT: 05/19/2016 JOB ID: [id number] DATE: 05/28/2016 CHIEF COMPLAINT: "I think I am doing better, can I increase my Abilify, the voices are still there." This is per patient report. HISTORY OF PRESENT ILLNESS: As stated above, the patient did meet with myself and identified that she does appreciate the administration of Abilify, but she indicated that this morning that the voices were still pretty strong. She indicated that she feels that the transition from Trilafon to Abilify has been a positive presentation. She reports that she had some fleeting thoughts of suicide this morning when the voices were pretty strong but denied any specific intent. MENTAL STATUS EXAM: She was bright, cooperative, interactive. She maintained good eye contact throughout. She currently has significant difficulties with phonetic articulation difficulties, as related to a history of cerebral palsy. Her mood was neutral. Her affect was congruent. Her thought process showed no evidence of racing thoughts, flight of ideas, loose or disconnected thinking. Thought content: She denied any evidence of homicidal ideation. She admitted to some suicidal thoughts early this morning when she was experiencing the voices but indicated that she does not want to do anything. She denies any evidence of paranoia. She was alert, oriented to time and place. Her attention and concentration intact. Memory intact in the short term, halfway, recent. Insight and judgment are fair. PHYSICAL EXAM: All vital signs are current. Temperature is 36.2, pulse 68, respirations 16, BP 110/61. MEDICATION REVIEW: 1. Abilify 15 mg daily. 2. HCTZ 12.5 mg daily. 3. Effexor 150 mg daily. 4. Pravastatin 2 mg q.h.s. 5. Pep 1 tablet q.4 h. p.r.n. 6. Aldactone 25 mg daily. 7. Estradiol 0.5 mg daily. 8. Vitamin D 3 1000 units daily. 9. Ditropan 5 mg daily. ASSESSMENT: [place] I 1. Major depressive disorder with psychotic features. 2. Posttraumatic stress disorder, chronic. [place] II Deferred. [place] III 1. Cerebral palsy. 2. Back pain. [place] IV Moderate. [place] V Global Assessment of Functioning 35. PLAN: 1. Recommendations for titration of Abilify to 20 mg daily. 2. Recommendations for continuation of all other medications same. 3. Recommendations for probable discharge on Saturday, Saturday with consolidation of appointments to follow.
--- NOTE | 2016-05-29 02:51 | NUR ---
Observations 1900 to 0700 Pt had a visitor last night and they both seemed to enjoy the visit. Pt spent her evening out in the DR visiting with another Pt. Pt first appeared asleep at 22:45 and was observed every 15 minutes through the night as directed.
--- NOTE | 2016-05-29 06:36 | NUR ---
Nursing note NOC Patient awoke x1 on noc shift. Stated she was anxious and accepted 50 mg of Vistaril at 0255. Slept approximately 7 hours. Pleasant. Drank water and listened to music while in bed.
[2016-05-29] MEDS: Venlafaxine XR 75 mg ER24 Capsule PO SCH ×2 (08:10→18:00)
[2016-05-29] MEDS: Pantoprazole 40 mg ER24 Tablet PO SCH (08:10)
[2016-05-29] MEDS: ARIPiprazole 10 mg Tablet PO SCH (08:11)
[2016-05-29 09:15] VITALS: BP 92/57; PULSE 90; RESP 18
[2016-05-29 10:00] VITALS: BP 92/57; PULSE 90; RESP 16
[2016-05-29] MEDS: HYDROcodone-APAP 10-325 mg PO PRN ×2 (11:40→21:06)
--- NOTE | 2016-05-29 15:15 | PROG NOTE ---
[address] [address] PROGRESS NOTE PATIENT: SKYE SANTOS : 1970 MR#: [id number] ADMIT: 05/19/2016 JOB ID: [id number] DATE: 05/29/2016 CHIEF COMPLAINT: "I think I am doing pretty well, I would like to go back and see Jasmin." This is per patient report. HISTORY OF PRESENT ILLNESS: As stated above, the patient identified that she does feel that things are going fairly well. She denies any evidence of acute distress. She reports that she has been taking her medications, enjoying activities on the unit. She indicated that she took a shower this morning and has been cooperating with medications of. OBJECTIVE: On mental status exam, she was bright, cooperative, interactive. She had good eye contact throughout. She continues to have difficulties with articulation which is status. Her mood was neutral. Affect congruent. Her thought process showed no evidence of racing thoughts, flight of ideas, loose or disconnected thinking. Thought content, she denied any evidence of homicidal ideation. No evidence of suicidal ideation. She was alert, oriented to time, place, situation. Her attention and concentration intact. Memory intact in the short term, rat exterminator, recent. Insight and judgment are fair. PHYSICAL EXAMINATION: Vital signs of current. Temperature was 36.4, pulse 90, respirations 16, BP 92/57. MEDICATION REVIEW: Includes: 1. Abilify 20 mg daily. 2. Hydrochlorothiazide 12.5 mg daily. 3. Effexor 150 mg daily. 4. Prazosin 2 mg q.h.s. 5. Ditropan 5 mg daily. 6. Vitamin D3, 1000 units daily. 7. Estradiol 0.5 mg daily. 8. Aldactone 25 mg daily. 9. [place] 1 tablet q.4 h. p.r.n. for pain. ASSESSMENT: AXIS I 1. Major depressive disorder with psychotic features. 2. Posttraumatic stress disorder, chronic. AXIS II Deferred. AXIS III 1. Cerebral palsy. 2. Chronic back pain. AXIS IV Moderate. AXIS V Global Assessment of Functioning current 35. PLAN: 1. Continuation of medications as noted. 2. Recommendation is for discharge on for continuation of outpatient interventions.
--- NOTE | 2016-05-29 16:53 | NUR ---
Observations [id number] Pt was asleep upon start of shift. She attended breakfast eating 100%, and shared with this instructional writer that she would be leaving on . Pt appears to be anxious about returning home but also appears to be more positive regarding leaving then in previous days. Pt shared "Last week few by, but this week is dragging.....I think that means I'm doing better, and feeling better." Pt attended lunch, eating 50%, and dinner at 100%. Pt also took a shower in the evening which this instructional writer helped with. She napped much of the day and evening. Pt was observed every 15 minutes of shift as directed.
--- NOTE | 2016-05-29 19:12 | NUR ---
Nursing; Day shift: Skye has been out in the DR for meals and some TV. She smiles readily and is aware of discharge plan for . She is future oriented and anxious but hopeful for success as she leave. Less depressed. not suicidal now. She takes medicatons as offered. PRN meds: Requested and received Ativan 1 mg at dinner time. Did not rate anxiety. Showered. Preparing for discharge. Addendum: 05/29/16 at 1933 by LOY BARILLAS RN INACCURACY IN NURSING NOTE ABOVE ABOUT PRN MED. SKYE DID NTO RECEIVE ATIVAN 1 MG TODAY. THAT WAS CHARTED IN ERROR ABOUT ANOTHER PATIENT. SKYE RECIVED HYDROCODONE APAP AT 1140 WITH SOME RELIEF OF PAIN IN HER BACK.
--- NOTE | 2016-05-30 02:11 | NUR ---
Observations 1900 to 0700 Pt had a visitor last night and they both seemed to enjoy the visit. Pt spent her evening out in the DR. Pt first appeared asleep at 22:00 and was observed every 15 minutes through the night as directed.
--- NOTE | 2016-05-30 06:04 | NUR ---
Nursing Noc Pt appeared to fall asleep first at 2200 and was up once for repeat sleep aid and has remained asleep throughtout the night. Continuing to monitor by Q15 minute safety checks throughout the shift. Monitoring mood, behavior, emotional state and medication effectiveness. CP
[2016-05-30] MEDS: Pantoprazole 40 mg ER24 Tablet PO SCH (08:14)
[2016-05-30] MEDS: Venlafaxine XR 75 mg ER24 Capsule PO SCH ×2 (08:14→17:39)
[2016-05-30] MEDS: ARIPiprazole 10 mg Tablet PO SCH (08:15)
--- NOTE | 2016-05-30 14:04 | PROG NOTE ---
[address] [address] PROGRESS NOTE PATIENT: SKYE SANTOS : 1970 MR#: [id number] ADMIT: 05/19/2016 JOB ID: [id number] DATE: 05/30/2016 CHIEF COMPLAINT: "I think I will be ready to leave here tomorrow." This is per patient report. HISTORY OF PRESENT ILLNESS: As stated above, the patient openly identified some excitement about possible discharge tomorrow. She indicated that she was up earlier today and participating in group activities. She denies any evidence of acute distress. OBJECTIVE: On mental status exam, her speech was of normal tone, frequency, and volume. She continues to have evidence of articulation deficits but this is noted chcf in her presentation. Her mood is neutral. Her affect was congruent. Her thought process showed no evidence of racing thoughts, flight of ideas, loose or disconnected thinking. Thought content, she denied any evidence of current suicidal, homicidal ideation. She denies any active hallucinations or delusions. She was alert, oriented to person, place, time, situation. Her attention and concentration intact. Memory intact in the short term, chcf, recent. Insight and judgment are fair. PHYSICAL EXAMINATION: Vital signs of current, temperature is 36.4, pulse 90, respirations 16, BP 92/37. MEDICATION REVIEW: Includes: 1. Abilify 20 mg daily. 2. Hydrochlorothiazide 12.5 mg daily. 3. Effexor 150 mg daily. 4. Effexor 150 mg b.i.d. 5. Minipress 2 mg q.h.s. 6. Aldactone 25 mg daily. 7. Estrace 0.5 mg daily. 8. Vitamin D3, 1000 units daily. 9. Ditropan 5 mg daily. ASSESSMENT: AXIS I 1. Major depressive disorder with psychotic features. 2. Posttraumatic stress disorder, chronic. AXIS II Deferred. AXIS III 1. History of cerebral palsy. 2. Chronic back pain. AXIS IV Moderate. AXIS V Global Assessment of Functioning current 35. PLAN: 1. Continuation of all medications noted. 2. Followup appointments to be arranged with Case Management for planned discharge tomorrow.
--- NOTE | 2016-05-30 15:30 | NUR ---
Obs Dayshift Pt stated that is was feeling a little down today and like she wasn't doing much for herself. She was encouraged to force herself up more and stay out in the milieu w/ others. Pt has been trying and getting herself up and out of her room a little more today. Pt is polite, appropriate, calm, engages w/ some peers and staff. Pt stated that she does want to go home but is slightly worried and anxious. Good ADL's, Good meals
--- NOTE | 2016-05-30 18:12 | NUR ---
Case Management/Counseling: S: "I think I will be ready to go home tomorrow." O: Met with patient. Patient slept 6.5+ hours last night per staff. She denies S/I and H/I. She also denies auditory and visual hallucinations. She did not rate depression and anxiety. A: Patient is cooperative, pleasant, fair insight, fair judgment. P: Follow care plan, coordinate transportation and out-patient providers.
--- NOTE | 2016-05-30 18:30 | NUR ---
[id number]. nurs. S: "I'm anxious about going home being lonely" O: Pt stating that having been at [facility] for 2 weeks it was going to be hard to go back home and be alone again. Pt out on unit with others more in later afternoon and karina, appeared to like to be included in the group conversation with others after dinner particularly. Pt requested and assisted with a shower by staff in afternoon and stated felt better and appreciated hair grooming assistance. Pt also spent long period on phone with neighbour this karina. Staff helped pt complete safety plan by writing for her. Pt states that Berta Dawkins is going to be at her home on Saturday to . need for increased hours pt hoping for 5 hours daily. P:CNCP with discharge tomorrow pt states her mother will be able to transport her home.
--- NOTE | 2016-05-31 05:32 | NUR ---
Nursing Noc Pt participating in milieu, snacks and wrap up group. Pt reports continued anxiety about discharge but remains future oriented. Planned discharge in am. Continuing to monitor sleep by Q15 minute safety checks, mood, behavior, emotional state and medications. CP
[2016-05-31] MEDS: Pantoprazole 40 mg ER24 Tablet PO SCH (09:02)
[2016-05-31] MEDS: ARIPiprazole 10 mg Tablet PO SCH (09:04)
[2016-05-31] MEDS: Venlafaxine XR 75 mg ER24 Capsule PO SCH (09:04)
--- NOTE | 2016-05-31 10:32 | PCM.DIMED ---
Discharge Instructions Date of Service May 31, 2016 Dates of Hospitalization May 19, 2016 at 09:19 Discharge Diagnosis Discharge Diagnosis Schizophrenia Paranoid Diet No restrictions Activity No restrictions Francisco Healy DO May 31, 2016 10:32
[2016-05-31] MEDS ORDERED: HYDR50CA3 PO (10:42)
[2016-05-31] MEDS ORDERED: VENL75CA PO (10:42)
[2016-05-31] MEDS ORDERED: HYDR-3740 PO (10:42)
[2016-05-31] MEDS ORDERED: PRAZ2CAP PO (10:42)
[2016-05-31] MEDS ORDERED: ARIP20TA10 PO (10:42)
--- NOTE | 2016-05-31 13:35 | DIS ---
[address] [address] DISCHARGE SUMMARY PATIENT: SKYE SANTOS : 1970 MR#: [id number] ADMIT: 05/19/2016 JOB ID: [id number] DIS: 05/31/2016 ADMITTING DIAGNOSES: AXIS I 1. Major depressive disorder with suicidal ideation and psychotic features. 2. Posttraumatic stress disorder, chronic. AXIS II Deferred. AXIS III 1. Cerebral palsy. 2. Back pain. AXIS IV Moderate. AXIS V Global assessment of functioning of current 35. DISCHARGE DIAGNOSES: AXIS I 1. Major depressive disorder, recurrent type, with psychoses. 2. Posttraumatic stress disorder, chronic. AXIS II Deferred. AXIS III 1. Cerebral palsy. 2. Back pain. AXIS IV Stressors are noted for history of chronic mental health issues, physical limitations. AXIS V Global assessment of functioning of current 45. REASON FOR ADMISSION: The patient was a 46-year-old female admitted on a voluntary basis with noted increasing difficulties with depression and command type hallucinations telling her to hurt herself. During hospital course, the patient's medication history was reviewed with election to initiate doses of Abilify and discontinuation of doses of Trilafon. Doses were eventually titrated to 20 mg daily and there was shown significant positive affect and interactions and decreased hallucinations. In addition, her antidepressant of Effexor was titrated to 300 mg daily. She remained on doses of Prazosin with titration to 2 mg q.h.s. with beneficial improvement of flashbacks and nightmare activity. Throughout the hospital course, the patient denied any evidence of further suicidal or homicidal ideation. She indicated that the voices essentially had been discontinued with increased doses of Abilify and was very appreciative. CONDITION AT TIME OF DISCHARGE: The patient's mood and affect were stable. She denied any evidence of current suicidal or homicidal ideation. No evidence of active hallucinations, delusions. She was alert, oriented to time, place, situation. Attention and concentration intact. Memory intact in the short term, intermediate card tender, recent. Insight and judgment were fair. DISCHARGE PLANS: Include: 1. Continuation of Abilify 20 mg q. a.m., one month supply, no refills. Reason for usage: Antipsychotic. 2. Continuation of Percocet 10/325 one tablet q.4 hours p.r.n. for pain, #60 tablets. 3. Continuation of hydroxyzine 50 mg q.4 hours p.r.n. for anxiety, agitation, :60, no refills. 4. Continuation of Prazosin 2 mg q.h.s., one month supply, no refills. Reason for use: She has PTSD. 5. Continuation of Effexor 150 mg b.i.d., one month supply, no refills. Reason for usage: Antidepressant. 6. Continuation of doses of vitamin D3, vitamin K. over-the- counter supplements of fruit extract, vitamin B12, Nexium, estradiol, oxybutynin and spironolactone 25 mg b.i.d. No prescriptions were given for these medications and the patient was encouraged to followup with her outpatient care provider. 7. Continuation of services through [facility] for both individual therapies, case management and medication management. Appointments will be scheduled by the correctional counselor/case manager.
[2016-05-31 13:48] VITALS: BP 100/68; PULSE 68; RESP 16
--- NOTE | 2016-05-31 14:02 | NUR ---
0700 -1900. nurs. Discharge note. Pt out on unit with peers, able to attend to details of discharge med plan and follow up apts. Pt's mother also reviewing plan and stating she will assist pt to get to apts. Pt with bright affect some anxiety re returning to apt after living in more social environment. Pt has Berta rep coming to home tomorrow to eval. pt for increased hours of care giving. Pt is hopeful that this will help her with feelings of loneliness in the eves. Pt has no SI, no adverse s/es to meds. Pt's mother reports that pt does have some friends that do visit. Pt discharged to home at 1330 with mother and belongings and will be going to first apt this afternoon with mother providing transport and collecting pt's prescriptions faxed to [facility].
--- NOTE | 2016-05-31 18:22 | NUR ---
Case Management/Counseling: S: "I'm feeling better today." O: Met with patient and psychiatrist. Patient slept 8 hours last night per staff. She denies S/I and H/I. She also denies auditory and visual hallucinations. Depression is 0/10 and anxiety is 8/10. When asked her mood, patient stated, "Alright." Out-patient appointments: Jason Banerjee, counselor for [facility], 05/31/16 at 3:30pm and CATY Neal, prescriber for [facility], 06/06/16 at 11;30am. A: Patient is cooperative, pleasant, fair insight, fair judgment. P: Follow care plan, coordinate transportation and out-patient providers.
== END 2016-05-31 13:30 | disposition home or self-care (01) | DRG 885 ==
LOC: MHC 09:19
PROVIDERS: ADMIT Psychiatry & Neurology Psychiatry; ATTEND Psychiatry & Neurology Psychiatry
DX: F33.3 Major depressive disorder, recurrent, severe with psychotic symptoms (principal); F43.12 Post-traumatic stress disorder, chronic; G80.9 Cerebral palsy, unspecified; G89.29 Other chronic pain

== ENCOUNTER 2016-07-04 14:21 | Emergency (ER) | payer MEDICARE, MEDICAID ==
[~2016-07-04] VITALS: Ht 167.6 cm; Wt 70.0 kg
[~2016-07-04 14:21] MED LIST changes: +ARIP20TA10 PO; +HYDR-3740 PO; +HYDR50CA3 PO; -PERP4TAB11 PO; +PRAZ2CAP PO; +VENL75CA PO
[2016-07-04 14:26] VITALS: BP 122/81; PULSE 101; RESP 18; O2SAT 99
--- NOTE | 2016-07-04 16:23 | ED.REPORT ---
HPI-Psychiatric Illness Date of Service Jul 04, 2016 ED Provider: Doc,Ed 46 year old female patient with history of schizophrenia, suicidal thoughts, and former diagnosis of bipolar II presents to ED with suicidal thoughts that began 1 week ago. When asked if she has a plan, she states, "cutting." Per rifle case repairer, patient normally receives her medication on Fridays but there was an issue in receiving medications this last Saturday, resulting in a period of 4 full days being off of her medication. Patient had suicidal thoughts before this period of being off her medication. She was able to return to her normal medication regiment today, however the suicidal thoughts have not gone away. Patient has never tried to kill herself. Per rifle case repairer patient is normally compliant with her medication. She denies any physical complaints. Nursing Notes Stated Complaint: SUICIDAL IDEATIONS Chief Complaint: Psychiatric Complaint Nursing Notes Reviewed: Yes Allergies: Coded Allergies: tetracycline (Verified Allergy, Severe, RASH, TOLERATES MINOCYCLINE, ) erythromycin ethylsuccinate (Verified Allergy, Mild, Rash, 07/04/16) cephalexin (Verified Allergy, Unknown, 07/04/16) Scheduled Aripiprazole (Aripiprazole) 20 Mg Tablet 20 MG PO DAILY Aripiprazole (Aripiprazole) 20 Mg Tablet 20 MG PO DAILY Aripiprazole (Aripiprazole) 20 Mg Tablet 20 MG PO DAILY Aripiprazole (Aripiprazole) 20 Mg Tablet 20 MG PO DAILY Cholecalciferol (Vitamin D3) (Vitamin D) 1,000 Unit Tablet 1,000 UNIT PO DAILY Esomeprazole Magnesium (Nexium) 40 Mg Capsule.dr 40 MG PO DAILY Estradiol (Estradiol) 0.5 Mg Tablet 0.5 MG PO DAILY Oxybutynin Chloride (Oxybutynin Chloride) 5 Mg Tablet 5 MG PO DAILY Prazosin (Minipress) 2 Mg Capsule 2 MG PO HS Spironolactone/HCTZ 25-25 mg (Spironolactone/HCTZ 25-25 mg) 1 Each Tablet 25 TABLET PO BID Venlafaxine ER (Effexor XR) 75 Mg Capsule 150 MG PO BIDWM Scheduled PRN Hydrocodone-Acetaminophen 10-325 mg (Hydrocodone-Acetaminophen 10-325 mg) 1 Each Tablet 1 TABLET PO Q4H PRN PRN For Pain Hydroxyzine Pamoate (HydrOXYzine Pamoate) 50 Mg Capsule 50 MG PO Q4H PRN PRN FOR ANXIETY,AGIT, OR INSOMNIA Miscellaneous Medications Ca Carbonate/Vitamin D3/Vit K (Calcium + D Soft Chewable Tab) 1 Each Tab.chew 1 EACH PO Cranberry Fruit (Cranberry) 400 Mg Tablet 400 MG PO Cyanocobalamin (Vitamin B-12) (Vitamin B-12) 1,000 Mcg Tab.subl 1,000 MCG SL General Time Seen by MD: 16:23 Chief Complaint Suicidal ideation Hx Obtained From: Patient Arrived By: Walk-in Onset Occurred: 1 week ago Symptom Duration: Since onset Progression Since Onset: Constant Severity: Current: No pain currently Severity: Maximum: No pain Recent Healthcare: Recent doctor visit, Recent hospitalization (April) Similar Sx Previous: Yes Risk-Psychiatric Illness Suicide Risk Stratification Suicide Risk Factors - Adult: : Prior psych admissionNo: Alcohol use, Previous attempt, Substance abuse RF Statements: Risk factors reviewed Past Medical History Past Medical History Cerebral palsy Chronic low back pain Depression Suicidal ideation PTSD Anxiety Pneumonia Reports: Mental illness Past Surgical History Multiple orthopedic procedures related to CP. Reports: Cholecystectomy Family History Reviewed, not relevant. Smoking History Never Smoker Social History Alcohol Use: Denies alcohol use Drug Use: Denies drug use Other Social History: Local resident Ambulatory Status Independent Review of Systems Constitutional: Denies: Chills, Fever Respiratory: Denies: Non-productive cough, Shortness of breath Cardiovascular: Denies: Chest pain GI: Denies: Abdominal pain, Diarrhea, Nausea, Vomiting Skin: Denies Rash Neurologic: Denies: Headache Psychiatric: Reports: Depression, Suicidal ideation Complete sys rev & neg: except as marked. Physical Exam Initial Vital Signs Vital Signs (First) Date Time Temp Pulse Resp B/P Pulse Ox O2 Delivery O2 Flow Rate FiO2 07/04/16 14:26 36.2 101 18 122/81 99 Initial VS: Reviewed Head / Eyes: Atraumatic, Normocephalic Neck: Supple, Non-tender, Full range of motion Respiratory: Breath sounds normal, Clear to auscultation, No respiratory distress Cardiovascular: Regular rate & rhythm, Heart sounds normal, Intact distal pulses Abdomen / GI: Soft, Non-tender, No guarding, No rebound, No distention Back: No CVA tenderness Lymphatic: No lymphadenopathy Extremities: Vascular intact, Neuro intact, No swelling, No tenderness Skin: Warm, Dry, No cyanosis General/Constitutional: Awake, Alert, Cooperative mentally delayed. Neurologic: Oriented X3, Speech NL Psychiatric: Not homicidal Abnormal Thinking / Perception: Positive: Suicidal, with plan (cutting) Eye Movement: Positive: Nystagmus present Interpretation & Diagnostics Lab Results Interpretation Test 07/04/16 16:45 Lab Results Interpretation: urine drug screen negative. Breathalyzer is zero. Re-Eval/Medical Decision Med Decision/Clinical Course Not thought to be of imminent harm herself or others. Has close outpatient follow-up. Is under the supervision of her mother who agrees to help keep the patient safe. Seen by social work who concurs. Return and follow-up precautions given. Source of Hx: Old records Consultation : Consulted With: pediatric social worker Call Returned at: 17:09 Note: ED clinical social work aide evaluated the patient and feels that she is safe for discharge. Counseled Regarding: Diagnosis, Lab results, Need for follow-up, When/why to return to ED Discharge & Departure Impression: Primary Impression: Suicidal ideation )( Condition at Discharge: No danger to self, No danger to others Disposition: Home Discharge Condition All VS Reviewed: Yes Condition: Stable Additional Instructions: Follow-up with [facility] as planned. To the ER if you feel imminently suicidal or have other emergent concerns. Referrals: Tavia Sung MD (PCP) Scribe Attestation Portions of this note were transcribed by Nish Mckeon. I, Dr. Rico personally performed the history, physical exam and medical decision-making; I reviewed and confirmed the accuracy of the information in the transcribed note. Signed by: Vito Cummings, 07/04/2016and 1740. copies to: Tavia Sung MD, Timothy S DO Jul 04, 2016 16:23 Nish Mckeon Jul 04, 2016 16:54 Cyndie Fontana Jul 04, 2016 17:15
[2016-07-04 17:25] VITALS: BP 120/78; PULSE 99; RESP 18; O2SAT 99
== END 2016-07-04 17:25 | disposition home or self-care (01) ==
LOC: SED 14:21
DX: R45.851 Suicidal ideations (principal); F31.9 Bipolar disorder, unspecified; F20.9 Schizophrenia, unspecified; Z88.1 Allergy status to other antibiotic agents

== ENCOUNTER 2016-07-07 23:18 | Emergency (ER) | payer MEDICARE, MEDICAID ==
[~2016-07-07] VITALS: Ht 167.6 cm; Wt 70.5 kg
[2016-07-07 23:26] VITALS: BP 124/82; PULSE 85; RESP 20; O2SAT 98
--- NOTE | 2016-07-08 00:24 | ED.REPORT ---
HPI-Psychiatric Illness Date of Service Jul 08, 2016 ED Provider: Clayton Barahona MD Pt is a 46 year old female with a hx of cerebral palsy, schizophrenia, bipolar, paranoia and PTSD presenting to the ED complaining of suicidal ideation onset 1 week ago. Associated symptoms include weight loss (34 lbs), fatigue, loss of sleep. She was seen here 4 days ago with the same symptoms. The pt states that she has been thinking of "ending it all" by cutting herself with a knife. She denies previous suicide attempt, but does report previous suicidal ideation. She states that she is tired of cerebral palsy. Pt lives by herself in [place]. Pt reports a recent change in her antidepressants. She was admitted May 19-May 31, 2016 for similar symptoms. Nursing Notes Stated Complaint: SUICIDAL IDEATION Chief Complaint: Psychiatric Complaint Nursing Notes Reviewed: Yes Allergies: Coded Allergies: tetracycline (Verified Allergy, Severe, RASH, TOLERATES MINOCYCLINE, ) erythromycin ethylsuccinate (Verified Allergy, Mild, Rash, 07/04/16) cephalexin (Verified Allergy, Unknown, 07/04/16) Scheduled Aripiprazole (Aripiprazole) 20 Mg Tablet 20 MG PO DAILY Aripiprazole (Aripiprazole) 20 Mg Tablet 20 MG PO DAILY Aripiprazole (Aripiprazole) 20 Mg Tablet 20 MG PO DAILY Aripiprazole (Aripiprazole) 20 Mg Tablet 20 MG PO DAILY Cholecalciferol (Vitamin D3) (Vitamin D) 1,000 Unit Tablet 1,000 UNIT PO DAILY Esomeprazole Magnesium (Nexium) 40 Mg Capsule.dr 40 MG PO DAILY Estradiol (Estradiol) 0.5 Mg Tablet 0.5 MG PO DAILY Oxybutynin Chloride (Oxybutynin Chloride) 5 Mg Tablet 5 MG PO DAILY Prazosin (Minipress) 2 Mg Capsule 2 MG PO HS Spironolactone/HCTZ 25-25 mg (Spironolactone/HCTZ 25-25 mg) 1 Each Tablet 25 TABLET PO BID Venlafaxine ER (Effexor XR) 75 Mg Capsule 150 MG PO BIDWM Scheduled PRN Hydrocodone-Acetaminophen 10-325 mg (Hydrocodone-Acetaminophen 10-325 mg) 1 Each Tablet 1 TABLET PO Q4H PRN PRN For Pain Hydroxyzine Pamoate (HydrOXYzine Pamoate) 50 Mg Capsule 50 MG PO Q4H PRN PRN FOR ANXIETY,AGIT, OR INSOMNIA Miscellaneous Medications Ca Carbonate/Vitamin D3/Vit K (Calcium + D Soft Chewable Tab) 1 Each Tab.chew 1 EACH PO Cranberry Fruit (Cranberry) 400 Mg Tablet 400 MG PO Cyanocobalamin (Vitamin B-12) (Vitamin B-12) 1,000 Mcg Tab.subl 1,000 MCG SL General Time Seen by MD: 00:15 Chief Complaint Suicidal ideation Hx Obtained From: Patient Arrived By: Walk-in Onset Occurred: Onset unknown Symptom Duration: Since onset Progression Since Onset: Constant Severity: Current: No pain currently Severity: Maximum: No pain Recent Healthcare: No recent hospitalization, Recent doctor visit Similar Sx Previous: Yes Risk-Psychiatric Illness Suicide Risk Stratification Suicide Risk Factors - Adult: : Prior psych admission RF Statements: Risk factors reviewed Past Medical History Past Medical History Cerebral palsy Chronic low back pain Depression Suicidal ideation PTSD Anxiety Pneumonia Reports: Mental illness Past Surgical History Multiple orthopedic procedures related to CP. Reports: Cholecystectomy Family History Reviewed, not relevant. Smoking History Never Smoker Social History Alcohol Use: Denies alcohol use Drug Use: Denies drug use Other Social History: Local resident Ambulatory Status Walker Review of Systems Constitutional: Reports: Fatigue Psychiatric: Reports: Depression, Insomnia, Suicidal ideation Complete sys rev & neg: except as marked. Endocrine: Reports: Weight loss Physical Exam Initial Vital Signs Vital Signs (First) Date Time Temp Pulse Resp B/P Pulse Ox O2 Delivery O2 Flow Rate FiO2 07/07/16 23:26 36.2 85 20 124/82 98 Room Air Initial VS: Reviewed, Vital signs normal Head / Eyes: Atraumatic, Normocephalic, PERRL ENT: Mucous membranes moist, Conjunctiva normal, No scleral icterus Neck: Supple, Non-tender, Full range of motion Respiratory: Breath sounds normal, Clear to auscultation, No respiratory distress Cardiovascular: Regular rate & rhythm, Heart sounds normal, Intact distal pulses Abdomen / GI: Soft, Non-tender, No guarding, No rebound, No distention Extremities: Vascular intact, Neuro intact, No swelling, No tenderness Skin: Warm, Dry, No cyanosis General/Constitutional: Awake, Alert Neurologic: Oriented X3, Speech NL, No motor deficits, No sensory deficits, Memory NL Psychiatric: Not homicidal, No hallucinations, Cognitive function NL, Judgment/ insight NL Abnormal Mood/Affect: Positive: Depressed, Hopeless Abnormal Thinking / Perception: Positive: Suicidal, with plan Interpretation & Diagnostics Lab Results Interpretation Result Diagram: 07/08/16 0130 07/08/16 0130 Test 07/08/16 01:30 White Blood Count 7.8th/mm3 (3.8-10.1) Red Blood Count 4.13mil/mm3 (3.90-5.20) Hemoglobin 12.6g/dL (12.0-15.6) Hematocrit 36.8% (35.0-46.0) Mean Corpuscular Volume 89.1fL (81-100) Mean Corpuscular Hemoglobin 30.5pg (27.0-35.0) Mean Corpuscular Hemoglobin Concent 34.2% (32.0-37.0) Red Cell Distribution Width 12.9% (12.3-15.4) Platelet Count 271bil/L (150-400) Neutrophils (%) (Auto) 42.8% (40-74) Lymphocytes (%) (Auto) 46.9% (14-46) Monocytes (%) (Auto) 8.8% (4-12) Eosinophils (%) (Auto) 1.0% (0-5) Basophils (%) (Auto) 0.4% (0-3) Sodium Level 137mEq/L (134-144) Potassium Level 4.0mEq/L (3.5-5.2) Chloride Level 100mEq/L (97-108) Carbon Dioxide Level 23mmol/L (18-29) Blood Urea Nitrogen 13mg/dL (6-24) Creatinine 0.65mg/dL (0.57-1.00) Estimat Glomerular Filtration Rate 142mL/min (>59) Glucose Level 101mg/dL (60-99) Calcium Level 9.3mg/dL (8.5-10.1) Total Bilirubin 0.2mg/dL (0.0-1.2) Aspartate Amino Transf (AST/SGOT) 18U/L (0-50) Alanine Aminotransferase (ALT/SGPT) 26U/L (0-32) Alkaline Phosphatase 76U/L (25-150) Total Protein 6.9g/dL (6.4-8.4) Albumin 4.0g/dL (3.4-5.0) Thyroid Stimulating Hormone (TSH) 4.870uIU/mL (0.450-4.500) Hold Campbell Top Tube Received (Received) Lab Results Interpretation: TSH is elevated Re-Eval/Medical Decision Med Decision/Clinical Course 46-year-old female with a long history of depression presents with suicidal ideation but denies any intent. She is followed by a high intensity outpatient team. I was able to discuss her care with her outpatient provider who does not feel that she would benefit from hospitalization. No local beds are available so [place] if [place] were [place]. The recent changes in her antidepressant really have not had time to take effect. She agrees to continue to pursue outpatient management. She agrees to stay safe. She will be discharged home and she will follow up tomorrow (Saturday) with her outpatient provider. Re-Evaluation/Progress : Time of Eval: 02:02 Patient Status: Condition improved Re-Evaluation/Progress Note: Discussed plan for discharge. Pt understands and agrees. Consultation #1: Consulted With: Mental health Call Returned at: 01:02 In Store Demonstrator: Will see patient, Agrees with plan Note: CORBY. Consultation #2: Consulted With: Mental health Call Returned at: 01:11 Note: Johnathan Banerjee. The pt should be discharged home. When she is admitted to the hospital her well-being tends to decline. Counseled Regarding: Diagnosis, Lab results, Need for follow-up, When/why to return to ED Discharge & Departure Impression: Primary Impression: Depression Depression Type: major depressive disorder Major depression recurrence: recurrent Active/Remission status: currently active Major depression episode severity: moderate Qualified Code: F33.1 - Major depressive disorder, recurrent, moderate Additional Impressions: Suicidal ideation Cerebral palsy Disposition: ADMITTED TO HOSPITAL Discharge Condition All VS Reviewed: Yes Condition: Improved Patient Instructions: Major Depression (DC) Additional Instructions: There are no beds available here for involuntary admissions. The only option for hospitalization is to try and arrange a transfer to an [place] bed tomorrow. I spoke with Johnathan Banerjee, who felt that your symptoms could be managed as an outpatient. We need to give the medication changes little more time to take effect. He will contact you tomorrow further evaluation and treatment. Referrals: CousinTavia rodriguez MD (PCP) Scribe Attestation Portions of this note were transcribed by Eunice Damon. I, Dr. Barahona personally performed the history, physical exam and medical decision-making; I reviewed and confirmed the accuracy of the information in the transcribed note. Signed by: Vito Baron, 07/08/2016 and 0248. copies to: Tavia Sung MD, Clayton Bettencourt MD Jul 08, 2016 00:24 EUNICE DAMON Jul 08, 2016 00:57
[2016-07-08 01:37] LABS: BASOPHILS % (AUTO) 0.4 % (0-3); MONOCYTES % (AUTO) 8.8 % (4-12); Mean Corpuscular Hemoglobin 30.5 pg (27.0-35.0); Mean Corpuscular Volume 89.1 fL (81-100); NEUTROPHILS % (AUTO) 42.8 % (40-74); Platelet Count 271 bil/L (150-400)
[2016-07-08 02:54] VITALS: BP 104/67; PULSE 89; RESP 20; O2SAT 93
== END 2016-07-08 02:57 | disposition home or self-care (01) ==
LOC: SED 23:18
DX: F33.1 Major depressive disorder, recurrent, moderate (principal); R45.851 Suicidal ideations; G80.9 Cerebral palsy, unspecified; F20.9 Schizophrenia, unspecified; F43.10 Post-traumatic stress disorder, unspecified; F22 Delusional disorders; Z88.1 Allergy status to other antibiotic agents